=== PATIENT | male | born 1980 | race Caucasian/White ===

== ENCOUNTER → 2017-07-07 10:51 | Outpatient (CLI) | payer BC | END | disposition home or self-care (01) | LOC: D.US 10:51 | DX: R10.9 Unspecified abdominal pain (principal) ==

== ENCOUNTER 2019-08-12 09:53 | Observation (INO) | payer OTHER ==
[~2019-08-12] VITALS: Ht 182.9 cm; Wt 100.7 kg
--- NOTE | ~2019-08-12 | OP ---
PATIENT NAME: JANUARY RIVERA MEDICAL RECORD: [id number] :80 [facility] [place] [place] DATE:08/12/19 SURGEON: JORDAN DUENAS MD DATE OF OPERATION: 08/12/2019 PREOPERATIVE DIAGNOSIS: Acute appendicitis with localized peritonitis. POSTOPERATIVE DIAGNOSIS: Acute appendicitis with localized peritonitis. PROCEDURE: Laparoscopic appendectomy. SURGEON: Jordan Duenas MD REPORT OF PROCEDURE: The patient's abdomen was prepped and draped in sterile fashion. A cutdown was made on the superior aspect of the umbilicus, 0 Vicryls were placed in the fascia bilaterally and the fascia was incised with 15-blade. I then bluntly entered the peritoneal cavity and placed a 12-mm Babs port. Under direct visualization, a 5-mm trocar was placed in the left lower quadrant and another was placed in the suprapubic region. The appendix was visualized and noted to be markedly inflamed with no signs of perforation. There was no surrounding fluid. There were some gangrenous appearance to the appendix. The base of the appendix, though appeared normal. We opened up a window in the mesoappendix near its base and we were able to transect the appendix at the cecal base using a 45 blue load Endo-LANEY stapler. The mesoappendix was then dissected free and we were able to transect this using a 45 white load Endo-LANEY stapler. We inspected the staple line. There was no sign of a leak, but there was some bleeding that was treated with electrocautery. We then irrigated out the right lower quadrant and the pelvis and assured there was no sign of any bleeding or leakage. The appendix had been placed into an Endo Catch bag. This was then removed through the umbilicus. The ports and insufflation were then removed. The umbilical fascia was closed with interrupted 0 Vicryls times 3. The wounds were then irrigated out with normal saline and infused with 10 mL of 0.25% Marcaine with epinephrine. The skin incisions were all closed with subcutaneous 5-0 Monocryl and dressed appropriately. COMPLICATIONS: None. CONDITION: Stable. ANESTHESIA: General endotracheal and local. BLOOD LOSS: Minimal. TRANSINT:[id number] Voice Confirmation ID: [id number] DOCUMENT ID: [id number] JORDAN DUENAS MD CC: RISHI VELASCO [id number] DICTATION DATE: 08/12/19 1520 SOFTWARE EDUCATOR: 08/12/19 1707 ADM IN [facility] [address] [id number]
--- NOTE | 2019-08-12 13:59 | NUR ---
1315-REPORTED TO DR. BRADSHAW PATIENT TOOK 20 OZ WATER AND GASTROGRAFIN CONTRAST IN RADIOLOGY AT 1015, ALONG WITH 22G IV CATHETER TO RIGHT ANTECUBITAL-STATES IT IS "OK" FOR SURGERY.
[2019-08-12 14:07] VITALS: BP 145/96; Ht 182.9 cm; Wt 100.7 kg
[2019-08-12] MEDS ORDERED: HYDROCODON-ACE1 EA10 PO (15:14)
--- NOTE | 2019-08-12 16:07 | NUR ---
1545-RECD FROM PACU. DROWSY. IV PATENT. DENIES PAIN. RESP WITH EASE. AT BEDSIDE.
--- NOTE | 2019-08-12 16:33 | NUR ---
1630-FULL LIQUIDS SERVED. ALERT. DENIES NAUSEA.
== END 2019-08-12 17:00 | disposition home or self-care (01) ==
LOC: D.CT 09:53 → D.SDCHOLD 12:50 → OBSVTIME 12:50 → D.SDCHOLD 17:00
PROVIDERS: ADMIT Surgery; ATTEND Surgery
DX: K35.30 Acute appendicitis with localized peritonitis, without perforation or gangrene (principal)